=== PATIENT | female | born 1990 | race Caucasian/White ===

== ENCOUNTER 2019-12-13 12:27 | Emergency (ER) | payer SELFPAY ==
[2019-12-13 12:38] VITALS: BP 142/106; PULSE 76; RESP 18; TEMP 36.9; O2SAT 100; BMI 26.4
--- NOTE | 2019-12-13 12:45 | ED_ITS ---
HPI - Abdominal Pain General: Chief Complaint: Abdominal Pain Stated Complaint: abdominal pain, diarrhea Time Seen by Provider: 12/13/19 12:45 History of Present Illness: HPI narrative: Pt states she has had abd pain for 2 weeks and it is getting worse, starts in low abd and travels up her ribs, had diarrhea but none for over 24 hours, no fever, no change in appetite, no urinary symptoms, describes it as sharp and constant. MD elicited complaint: abdominal pain Onset (ago): week(s) (2) Pain Consistency: constant Location: RLQ and LLQ Severity: moderate Quality: stabbing Radiation: LUQ, RUQ and bilateral flank Migration to: bilateral flank Exacerbating factors: nothing Relieving factors: nothing Associated Symptoms: Reports diarrhea; Denies anorexia, chills, constipation, GI cramping, fever(s), nausea and vomiting Related Data: Date of Last Menstrual Period: 11/18/19 Review of Systems General: Reports: 10 or more systems reviewed and unremarkable except in HPI and below Const: Denies: fever or chills ENMT: Denies: throat pain Card: Denies: chest pain or swelling of feet/ankles Resp: Denies: shortness of breath or productive cough GI: Reports: abdominal pain and diarrhea; Denies: nausea, vomiting, constipation or cramping : Denies: difficulty urinating Musc: Denies: back pain or extremity swelling Skin/Breast: Denies: rash Neuro: Denies: headache, numbness in extremities or weakness in extremities PFSH ED PFSH: Social History Smoking and tobacco status: never smoked Female Reproductive History: Date of last menstrual period: 11/18/19 Physical Exam Const: COMMON NORMALS: no apparent distress and oriented x3 GENERAL APPEARANCE: cooperative; not in distress HENMT: COMMON NORMALS: normocephalic HEAD & SCALP: normal to inspection and normocephalic MOUTH: oral and palatal mucosa normal and lip normal THROAT: posterior oropharynx normal and tonsils normal Neck/C-Spine: COMMON NORMALS: full ROM, no lymphadenopathy, supple and no meningeal signs GENERAL: Yes normal visual inspection and Yes trachea midline Chest: COMMONS NORMALS: inspection of chest normal Resp: COMMON NORMALS: normal respiratory effort and clear to auscultation bilaterally EFFORT & INSPECTION: Yes able to speak in complete sentences and No respiratory distress AUSCULTATION: clear to auscultation bilaterally, no rales, no rhonchi and no wheezes Cardio: COMMON NORMALS: regular rate, regular rhythm, S1 normal heart sound, S2 normal heart sound and no murmurs RATE: regular rate RHYTHM: regular rhythm HEART SOUNDS: S1 normal and S2 normal PERIPHERAL PULSES: radial pulses present and dorsalis pedis pulses present GI: COMMON NORMALS: soft to palpation; negative for non-tender INSPECTION: Yes normal to inspection AUSCULTATION: Yes normoactive bowel sounds PALPATION: Yes soft and Yes tender Details: LLQ and RLQ RECTAL EXAM: deferred : COMMON NORMALS: Yes no CVA tenderness BLADDER/KIDNEY EXAM: Yes no CVA tenderness Back/Pelvis: COMMON NORMALS: no CVA tenderness Extremity: COMMON NORMALS: normal to inspection, full ROM, normal capillary refill, no calf tenderness and no pedal edema Neuro: COMMON NORMALS: oriented x3, CN's II-XII intact bilaterally, moves all extremities and no focal motor deficits MENINGEAL SIGNS: Yes no meningeal signs Skin: COMMON NORMALS: no rashes or lesions noted GENERAL SKIN EXAM: no rashes or lesions noted Course Vital Signs: Vital signs: Vital Signs Temperature 98.4 F 12/13/19 12:38 Pulse Rate 67 12/13/19 16:30 Respiratory Rate 16 12/13/19 16:30 Blood Pressure 102/61 12/13/19 16:30 Pulse Oximetry 98 12/13/19 16:30 MDM - Abdominal Pain MDM Narrative: Medical decision making narrative: Pt has acute alisson on ct so I will order an us. Us shows cholelithiasis with mildly thick gb walll. Normal lfts, no evidence of biliary obstruction. Dr Elena states he will see the pt in his office and hopefully he will take her to surgery next week, ..I will send her home with pain meds and nausea meds and low fat diet. She will return if worse, any fever, unable to hold anything down. We will try po challenge now Lab Data: Labs: Lab Results 12/13/19 12/13/19 12/13/19 Range/Units 12:45 13:30 13:30 WBC 6.7 (4.0-10.0) 10^3/ uL RBC 4.61 (4.1-5.3) 10^6/u L Hgb 13.3 (11.5-15.3) g/dL Hct 40.9 (37.0-47.0) % MCV 88.7 (81-99) fL MCH 28.9 (28.0-34.0) pg MCHC 32.5 (30.0-36.0) g/dL RDW 13.2 (12.1-15.1) % Plt Count 202 (130-400) 10^3/c mm MPV 11.9 H (7.4-10.4) fL Neut % (Auto) 63.3 % Lymph % (Auto) 28.1 % Har[place] % (Auto) 6.7 % Eos % (Auto) 1.2 % Baso % (Auto) 0.6 % Neut # (Auto) 4.2 (1.8-7.7) 10^3/u L Lymph # (Auto) 1.9 (0.8-4.8) 10^3/u L [place] # (Auto) 0.5 (0.2-0.9) 10^3/u L Eos # (Auto) 0.1 (0.0-0.8) 10^3/u L Baso # (Auto) 0.0 (0.0-0.1) 10^3/u L Nucleated RBC % (a uto) 0 % Nucleated RBCs # 0.0 /100WBC Sodium 139 (136-145) mmol/L Potassium 3.9 (3.5-5.1) mmol/L Chloride 103 (98-107) mmol/L Carbon Dioxide 25 (22-29) mmol/L Anion Gap 14.9 (5-19) BUN 11 (6-20) mg/dL Creatinine 0.8 (0.5-0.9) mg/dL GFR Calculation 84.8 L (90-130) mL/min Glucose 94 (65-115) mg/dL Calculated Osmolal ity 284 L (285-295) mOsm/k g Calcium 9.6 (8.5-10.5) mg/dL Total Bilirubin 0.2 (0.15-1.2) mg/dL AST 19 (0-32) U/L ALT 20 (0-33) U/L Alkaline Phosphata se 77 (35-105) IU/L Total Protein 7.3 (6.6-8.7) g/dL Albumin 4.4 (3.5-5.2) g/dL Globulin 2.9 (1.3-4.6) g/dL Lipase 22 (13-60) U/L HCG, Qual (Negative) Urine Color Straw (Yellow) Urine Appearance Clear (CLEAR) Urine pH 7 (5-7) Ur Specific Gravit y 1.000 L (1.005-1.030) Urine Protein Neg (Negative) Urine Glucose (UA) Norm (Normal) Urine Ketones Negative (Negative) Urine Blood Neg (Negative) Urine Nitrate Negative (Negative) Urine Bilirubin Neg (NEGATIVE) Urine Urobilinogen Norm (Negative) mg/dL Ur Leukocyte Nuris ase Negative (Negative) 12/13/19 Range/Units 13:30 WBC (4.0-10.0) 10^3/ uL RBC (4.1-5.3) 10^6/u L Hgb (11.5-15.3) g/dL Hct (37.0-47.0) % MCV (81-99) fL MCH (28.0-34.0) pg MCHC (30.0-36.0) g/dL RDW (12.1-15.1) % Plt Count (130-400) 10^3/c mm MPV (7.4-10.4) fL Neut % (Auto) % Lymph % (Auto) % Harford % (Auto) % Eos % (Auto) % Baso % (Auto) % Neut # (Auto) (1.8-7.7) 10^3/u L Lymph # (Auto) (0.8-4.8) 10^3/u L Har[place] # (Auto) (0.2-0.9) 10^3/u L Eos # (Auto) (0.0-0.8) 10^3/u L Baso # (Auto) (0.0-0.1) 10^3/u L Nucleated RBC % (a uto) % Nucleated RBCs # /100WBC Sodium (136-145) mmol/L Potassium (3.5-5.1) mmol/L Chloride (98-107) mmol/L Carbon Dioxide (22-29) mmol/L Anion Gap (5-19) BUN (6-20) mg/dL Creatinine (0.5-0.9) mg/dL GFR Calculation (90-130) mL/min Glucose (65-115) mg/dL Calculated Osmolal ity (285-295) mOsm/k g Calcium (8.5-10.5) mg/dL Total Bilirubin (0.15-1.2) mg/dL AST (0-32) U/L ALT (0-33) U/L Alkaline Phosphata se (35-105) IU/L Total Protein (6.6-8.7) g/dL Albumin (3.5-5.2) g/dL Globulin (1.3-4.6) g/dL Lipase (13-60) U/L HCG, Qual Negative (Negative) Urine Color (Yellow) Urine Appearance (CLEAR) Urine pH (5-7) Ur Specific Gravit y (1.005-1.030) Urine Protein (Negative) Urine Glucose (UA) (Normal) Urine Ketones (Negative) Urine Blood (Negative) Urine Nitrate (Negative) Urine Bilirubin (NEGATIVE) Urine Urobilinogen (Negative) mg/dL Ur Leukocyte Nuris ase (Negative) Imaging Data ^: CT Abd/Pel: Radiologist's impression: [place] [address] CT Scan Report Signed Patient: Fabrice Murphy #: [id number] : 1990Acct#:[id number] Age/Sex: Date: [birth year] [facility] Attending Dr: Ordering Provider/Ordering MD: Lexis Zayas DO Date of Service: 12/13/19 Procedure(s): CT abdomen pelvis w con* [id number] Accession Number(s): [id number] Report Number: [id number] WS: [id number] CT ABDOMEN AND PELVIS WITH CONTRAST HISTORY: Abdominal pain with diarrhea. TECHNIQUE: Imaging performed of the abdomen and pelvis with IV contrast. Single phase imaging of the abdomen. Coronal and sagittal reformats are submitted. All CT scans at [facility] use at least one of these dose optimization techniques: automated exposure control; mA and/or kV adjustment per patient size (includes targeted exams where dose is matched to clinical indication); or iterative reconstruction. IV CONTRAST: Omnipaque 300; 95 mL IV. Oral contrast: No DLP: 645.74 mGy.cm COMPARISON: None available. Lower thorax: Lung bases are clear. Heart is normal size. No hiatal hernia. Liver/biliary system: Normal size with no intrahepatic dilatation. Gallbladder: Abnormal gallbladder. Gallbladder is slightly contracted with wall thickening and enhancement and pericholecystic edema. There is a stone in the fundus of the gallbladder. Pancreas: Normal. Spleen: Normal. Adrenal glands: Normal. Right kidney: Normal. Left kidney: Nonobstructing 6 mm calcification upper pole. Aorta: Normal. Lymphadenopathy: Small celiac axis lymph nodes measuring up to 6 mm. RIGHT lower quadrant lymph node measures 8 mm. Smaller RIGHT lower quadrant mesenteric lymph nodes are identified. There are very small retroperitoneal lymph nodes. Free fluid: None. GI tract: Appendix is not definitely identified. No GI tract obstruction or inflammatory process. Abdominal wall: Unremarkable abdominal wall. No hernia. Pelvis: Hemorrhagic collapsing corpus luteum cyst RIGHT ovary enhancing crenulated wall. Maximum diameter 1.7 cm. No free fluid in the pelvis. Bones: Unremarkable. CT/CT abdomen pelvis w con* [id number] IMPRESSION: 1. Findings consistent with acute cholecystitis without bile duct dilatation. Gallbladder is slightly contracted. Confirm with RIGHT upper quadrant ultrasound. 2. The appendix is not identified. 3. There are a few scattered mesenteric lymph nodes. Probably on the basis of mesenteric adenitis. Dictated By:Kyara Jean DO Signed By:Kyara Jean DOSigned Date/Time:12/13/19 1513 US: Radiologist's impression: Ultrasound Report Signed Patient: Fabrice Murphy #: [id number] : 1990Acct#:[id number] Age/Sex: Date: [birth year] Loc: ERRoom/Bed: Attending Dr: Ordering Provider/Ordering MD: Lexis Zayas DO Date of Service: 12/13/19 Procedure(s): US gall bladder 10688 Accession Number(s): [id number] Report Number: [id number] WS: [id number] RIGHT UPPER QUADRANT ULTRASOUND HISTORY: Abdominal pain, abnormal CT. COMPARISON: CT abdomen 12/13/2019. Liver: 10.3 cm in length. Normal size and echogenicity with no intrahepatic dilatation. No mass. Gallbladder: Mildly contracted gallbladder with shadowing from stones. Large amount of stones within the lumen. Diffuse gallbladder wall thickening is mild measuring up to 3.5 mm. CBD: 0.3 cm Pancreas: Normal size and echogenicity. Right kidney: 9.7 cm in length. Normal echogenicity with no mass or hydronephrosis. Aorta and IVC: Unremarkable. No ascites. US/US gall bladder [id number] IMPRESSION: Cholelithiasis with mild wall thickening. No bile duct dilatation or pericholecystic fluid. Dictated By:Kyara Jean DO Signed By:Kyara Jean DOSigned Date/Time:12/13/19 1600 DD/ 1559 Discharge Plan Discharge Patient Disposition: Home, Self-Care Clinical Impression: Cholelithiases Qualifiers: Cholelithiasis location: gallbladder Cholecystitis presence: without cholecystitis Biliary obstruction: without biliary obstruction Qualified Code(s): K80.20 - Calculus of gallbladder without cholecystitis without obstruction Condition: Stable Prescriptions: New hydrocodone-acetaminophen 5-325 mg tablet 1 tab PO Q4H PRN (Reason: pain) Qty: 20 RF: 0 Zofran 4 mg tablet 4 mg PO Q6H PRN (Reason: nausea and vomiting) Qty: 30 RF: 0 No Action fluoxetine 10 mg Capsule 20 mg PO DAILY RF: 0 ibuprofen 200 mg Tablet 400 mg PO PRN RF: 0 Discharge Orders: Discharge Order (Routine); Ordered 12/13/19 Ordered By: Lexis Zayas Referrals: Antonieta Riddle MD [Primary Care Provider] - 1-3 days Trevor Elena MD [Physician] - 1-3 days (call monday morning for appointment for next week) Discharge Diet: Low Salt Discharge Activity: Resume usual activity Patient Instructions: Cholelithiasis Activity Restrictions/Additional Instructions: f/u with pcp 1-2 days, return if worse, any problem, any change, low fat diet, drink plenty of fluids, f/u with Dr Elena next week, call mmonday Discharge Date/Time: 12/13/19 17:00 Coding Level of Care Code ED Ornament Setter for Chg Fwd Exam Comprehensive
--- NOTE | 2019-12-13 13:05 | CT_ITS ---
WS: [id number] CT ABDOMEN AND PELVIS WITH CONTRAST HISTORY: Abdominal pain with diarrhea. TECHNIQUE: Imaging performed of the abdomen and pelvis with IV contrast. Single phase imaging of the abdomen. Coronal and sagittal reformats are submitted. All CT scans at [facility] use at least one of these dose optimization techniques: automated exposure control; mA and/or kV adjustment per patient size (includes targeted exams where dose is matched to clinical indication); or iterativ e reconstruction. IV CONTRAST: Omnipaque 300; 95 mL IV. Oral contrast: No DLP: 645.74 mGy.cm COMPARISON: None available. Lower thorax: Lung bases are clear. Heart is normal size. No hiatal hernia. Liver/biliary system: Normal size with no intrahepatic dilatation. Gallbladder: Abnormal gallbladder. Gallbladder is slightly contracted with wall thickening and enhanc ement and pericholecystic edema. There is a stone in the fundus of the gallbladder. Pancreas: Normal. Spleen: Normal. Adrenal glands: Normal. Right kidney: Normal. Left kidney: Nonobstructing 6 mm calcification upper pole. Aorta: Normal. Lymphadenopathy: Small celiac axis lymph nodes measuring up to 6 mm. RIGHT lower quadrant lymph node measures 8 mm. Smaller RIGHT lower quadrant mesenteric lymph nodes are identified. There are very sma ll retroperitoneal lymph nodes. Free fluid: None. GI tract: Appendix is not definitely identified. No GI tract obstruction or inflammatory process. Abdominal wall: Unremarkable abdominal wall. No hernia. Pelvis: Hemorrhagic collapsing corpus luteum cyst RIGHT ovary enhancing crenulated wall. Maximum diam eter 1.7 cm. No free fluid in the pelvis. Bones: Unremarkable. CT/CT abdomen pelvis w con* [id number] IMPRESSION: 1. Findings consistent with acute cholecystitis without bile duct dilatation. Gallbladder is slightly contracted. Confirm with RIGHT upper quadrant ultrasoun d. 2. The appendix is not identified. 3. There are a few scattered mesenteric lymph nodes. Probably on the basis of mesenteric adenitis.
[2019-12-13 13:11] VITALS: BP 125/63; PULSE 78; RESP 16; O2SAT 100
[2019-12-13] MEDS: morphine 4 mg/mL SDV 1 mL IVP (13:35)
[2019-12-13] MEDS: ondansetron 2 mg/ML SDV 2 mL 4 MG IVP (13:36)
[2019-12-13] MEDS: sodium chloride 0.9% 1,000 ML 999 ML IV (13:36)
[2019-12-13 13:56] LABS: Add Urine Microscopic? NO
[2019-12-13 14:16] LABS: Bilirubin Urine Neg (NEGATIVE); Blood Urine Neg (Negative); Glucose Urine UA Norm (Normal); Ketones Urine Negative (Negative); Leukocyte Esterase Urine Negative (Negative); Nitrate Urine Negative (Negative); Protein Urine Neg (Negative); Urine Appearance Clear (CLEAR); Urine Color Straw (Yellow); Urobilinogen Urine Norm (Negative); pH Urine 7 (5-7)
[2019-12-13 14:30] VITALS: BP 113/64; PULSE 78; RESP 16; O2SAT 99
[2019-12-13 14:34] LABS: Basophils % 0.6 %; Eosinophils # 0.1 10^3/uL (0.0-0.8); Eosinophils % 1.2 %; Hematocrit 40.9 % (37.0-47.0); Hemoglobin 13.3 g/dL (11.5-15.3); Lymphocytes # 1.9 10^3/uL (0.8-4.8); Lymphocytes % 28.1 %; Mean Corpuscular HGB Conc 32.5 g/dL (30.0-36.0); Mean Corpuscular Hemoglobin 28.9 pg (28.0-34.0); Mean Corpuscular Volume 88.7 fL (81-99); Mean Platelet Volume 11.9 fL (7.4-10.4); Monocytes # 0.5 10^3/uL (0.2-0.9); Monocytes % 6.7 %; Neutrophils # 4.2 10^3/uL (1.8-7.7); Neutrophils % 63.3 %; Nucleated Red Blood Cells % 0 %; Platelet Count 202 10^3/cmm (130-400); Red Blood Count 4.61 10^6/uL (4.1-5.3); Red Cell Distribution Width 13.2 % (12.1-15.1); White Blood Count 6.7 10^3/uL (4.0-10.0)
[2019-12-13 14:49] LABS: Alanine Aminotransferase 20 U/L (0-33); Albumin Level 4.4 g/dL (3.5-5.2); Alkaline Phosphatase 77 IU/L (35-105); Anion Gap 14.9 (5-19); Aspartate Amino Transferase 19 U/L (0-32); Blood Urea Nitrogen 11 mg/dL (6-20); Calcium 9.6 mg/dL (8.5-10.5); Carbon Dioxide 25 mmol/L (22-29); Chloride 103 mmol/L (98-107); Globulin 2.9 g/dL (1.3-4.6); Glomerular Filtration Rate 84.8 mL/min (90-130); Glucose 94 mg/dL (65-115); Lipase 22 U/L (13-60); Osmolality Calculated 284 mOsm/kg (285-295); Potassium 3.9 mmol/L (3.5-5.1); Sodium 139 mmol/L (136-145); Total Bilirubin 0.2 mg/dL (0.15-1.2); Total Protein 7.3 g/dL (6.6-8.7)
[2019-12-13 14:52] LABS: HCG, Serum Qual Negative (Negative)
[2019-12-13] MEDS: iohexol 300 mg/mL 100 mL Btl IV (14:59)
[2019-12-13 15:00] VITALS: BP 107/57; PULSE 78; RESP 16; O2SAT 100
--- NOTE | 2019-12-13 15:28 | US_ITS ---
WS: [id number] RIGHT UPPER QUADRANT ULTRASOUND HISTORY: Abdominal pain, abnormal CT. COMPARISON: CT abdomen 12/13/2019. Liver: 10.3 cm in length. Normal size and echogenicity with no intrahepatic dilatation. No mass. Gallbladder: Mildly contracted gallbladder with shadowing from stones. Large amount of stones within the lumen. Diffuse gallbladder wall thickening is mild measuring up to 3.5 mm. CBD: 0.3 cm Pancreas: Normal size and echogenicity. Right kidney: 9.7 cm in length. Normal echogenicity with no mass or hydronephrosis. Aorta and IVC: Unremarkable. No ascites. US/US gall bladder [id number] IMPRESSION: Cholelithiasis with mild wall thickening. No bile duct dilatation or pericholec ystic fluid.
[2019-12-13 16:00] VITALS: BP 111/74; PULSE 75; RESP 16; O2SAT 100
[2019-12-13 16:30] VITALS: BP 102/61; PULSE 67; RESP 16; O2SAT 98
--- NOTE | 2019-12-16 10:28 | DCPLANNER ---
data science and iot manager had message to schedule a follow up appointment for patient with Dr. Elena. data science and iot manager called [facility], spoke with [facility], gave clinic patients information. data science and iot manager was told that patients information would be printed and reviewed. A follow up appointment was scheduled for patient for Friday, December 20, 2019 at 1:[address] Elena. Clinic will call patient with appointment information.
--- NOTE | 2019-12-24 14:03 | DCPLANNER ---
Patient did attend appointment scheduled for 12.20.19 with [facility].
== END 2019-12-13 17:00 | disposition home or self-care (01) ==
PROVIDERS: Emergency Medicine; Emergency Provider Emergency Medicine; Family Provider Family Medicine; PCP Family Medicine
DX: K80.20 Calculus of gallbladder without cholecystitis without obstruction (principal)
CPT/HCPCS: 12345; 74177; 76705; 80053; 81003; 83690; 84703; 85025; 96360; 96361; 96374; 96375; 99283; 99284; J2270; J2405; J7030; Q9967

== ENCOUNTER 2019-12-25 06:40 | Day surgery (SDC) | payer SELFPAY ==
[2019-12-24 12:19] VITALS: BMI 26.4
[2019-12-25] VITALS (7 sets, daily range): BP systolic 99–120; BP diastolic 59–83; PULSE 65–97; RESP 16–20; TEMP 36.4–36.6; O2SAT 96–100
[2019-12-25] MEDS: sodium chloride 0.9% 1,000 ML 30 ML IV (07:10)
--- NOTE | 2019-12-25 07:10 | ANES.PREANE2 ---
Pre-Anesthetic Assessment Pre-Anesthetic Assessment: Height/Weight: Height 1.55 m Weight 63.503 kg Temp Pulse Resp BP Pulse Ox 97.8 F 68 18 120/83 100 12/25/19 06:57 12/25/19 06:57 12/25/19 06:57 12/25/19 06:57 12/25/19 06:57 Preop Diagnosis: Cholelithiasis Proposed Procedure: Operation Date: 12/25/19 08:10 Proposed Procedures p Laparoscopic Cholecystectomy 27205 K80.20(Not Applicable) - Trevor Elena MD Last intake: Intake Last Liquid Date 12/24/19 Last Liquid Time 21:00 Last Solid Date 12/24/19 Last Solid Time 17:00 Social: Social History: No alcohol and No tobacco Exam: Pre-Anes Outpt Exam: alert, oriented x 3, clear to auscultation bilaterally and regular rate & rhythm Airway: Submandibular: WNL Cervical ROM: WNL MP: 2 Dentition: Full (dentation good) History/ROS: No significant history except as noted Pulmonary: Pulmonary: None reported CV/HEM: CV/HEM: None reported : : None reported Hepatic: Hepatic: None reported GI: GI: None reported Metabolic: Metabolic: None reported Musc/skel: Musc/skel: None reported Neuropsych: Neuropsych: Depression Anesthetic Plan: ASA status: 2 Anesthesia: Anesthesia Evaluation and General Risk of > 500 ml blood loss (7ml/kg in children): No Meds/Allergies Current Medications: Current Medications Generic Name Dose Route Start Last Admin Trade Name Freq PRN Reason Stop Dose Admin Sodium Chloride 1,000 mls @ 30 ml s/hr 12/25/19 06:45 12/25/19 07:10 Sodium Chloride 0.9% IV 12/26/19 06:44 30 mls/hr .Q24H TIANA Administration PFSH Anesthesia PFSH: Medical History Depression Surgical History H/O tubal ligation History of delivery Hx of tonsillectomy Family History Denies family history of Anesthesia complication Bleeding disorder Social History Smoking and tobacco status: never smoked Female Reproductive History: Date of last menstrual period: 11/18/19 Data Anesthesia Cardiac Studies: No Data to Display
[2019-12-25 07:14] LABS: OR HCG Qualitative Urine Negative (Negative)
--- NOTE | 2019-12-25 07:48 | W.PM.OPSUD ---
Surgery/Procedure H&P Update DATE OF PROCEDURE: December 25, 2019 DATE H&P PERFORMED: 12/20/19 H&P UPDATE INFORMATION: I have reviewed H&P completed within last 30 days, I have examined patient prior to procedure and No changes to prior documentation PREOP DIAGNOSIS: Cholelithiasis PLANNED PROCEDURE: Operation Date: 12/25/19 08:10 Proposed Procedures p Laparoscopic Cholecystectomy 99588 K80.20(Not Applicable) - Trevor Elena MD
[2019-12-25] MEDS: levofloxacin-dextrose 5 % 500 MG/100 ML PREMIX 100 MG IV (07:57)
--- NOTE | 2019-12-25 09:09 | PM.OP ---
Operative Report Date of procedure: December 25, 2019 Pre-op Diagnosis: Cholelithiasis Post-op diagnosis: same Procedure Done: Laparoscopic cholecystectomy Specimens removed/disposition: Gallbladder Surgeon: Trevor Elena Anesthesia: General Estimated blood loss (mL): 5 Condition: stable Disposition: PACU Procedure: The patient was taken to the operating room and was intubated under general anesthesia. After the antibiotic had been administered, the abdomen was prepped and draped in a sterile manner. Using a #15 blade, a 1 centimeter infraumbilical curvilinear incision was made and using an open Carolyn technique the peritoneal cavity was entered. A 10 millimeter port was placed and 15 millimeters of pneumoperitoneum was created. A 10 millimeter, 30 degrees scope was then introduced. Three 5 millimeter ports were placed in the epigastric, midclavicular and the anterior axillary line two fingerbreadths below the costal margin on the right side under the direct visualization. Ratcheted forceps were introduced into the lateral most port and was used to retract the fundus of the gallbladder cephalad and using forceps the infundibulum of the gallbladder was retracted laterally. Using L-hook cautery the peritoneum overlying the Calot's triangle was opened medially and laterally until the cystic duct and the cystic artery were skeletonized. Dissection was carried along the body of the gallbladder and after ensuring critical view of safety, 4 clips applied on the cystic duct and 3 clips applied on the cystic artery and cut leaving, 3 clips on the remaining portion of the duct and 2 clips on the remaining portion of the artery. The rest of the gallbladder was dissected off the liver using L-hook cautery. There was no bleeding or bile leaking noted from the gallbladder fossa and the clips appeared to be in place. An EndoCatch bag was introduced to remove the gallbladder. All the ports were removed under direct visualization and there was no bleeding noted from the port sites. The fascia of the umbilicus was closed using [id number] Vicryl sutures and the subcutaneous tissue was approximated using 3-0 Vicryl sutures. The skin at all four ports were closed using 4-0 Monocryl and Dermabond. A total of 10 millimeters of 0.5% Marcaine was infiltrated around the port sites. The patient was stable throughout the procedure.
[2019-12-25] MEDS: HYDROcodone-acetaminophen 5-325 mg Tablet 1 TAB PO (10:01)
== END 2019-12-25 10:30 | disposition home or self-care (01) ==
PROVIDERS: Anesthesiology; PCP Nurse Practitioner Family; Visit Provider Surgery
PROC: 0FT44ZZ Resection of Gallbladder, Percutaneous Endoscopic Approach (ICD-10-PCS; CPT 47562; principal; 2019-12-25 08:10)
DX: K80.10 Calculus of gallbladder with chronic cholecystitis without obstruction (principal); F32.9 Major depressive disorder, single episode, unspecified
CPT/HCPCS: 47562; 12345; 81025; 84703; 88304; J1956; J2001; J2405; J2704; J2710; J3010; J3490; J7030

== ENCOUNTER 2021-12-23 16:21 | Outpatient (CLI) | payer MEDICAID, SELFPAY ==
--- NOTE | 2021-12-23 16:39 | XR_ITS ---
WS: [id number] XR sinus min 3V* [id number] REASON FOR EXAM: DIZZINESS FINDINGS: The maxillary and left ethmoid sinuses are clear and well-aerated. There is slight haziness of the ri ght ethmoid sinus which may indicate mild mucosal thickening. The frontal sinuses are small small but well aerated. Sphenoid sinus is normal. XR/XR sinus min 3V* [id number] IMPRESSION: Minimal change right ethmoid sinus as above.
== END 2021-12-23 16:22 | disposition home or self-care (01) ==
LOC: RAD 16:29
PROVIDERS: PCP Nurse Practitioner Family; Visit Provider Nurse Practitioner Family
DX: R42 Dizziness and giddiness (principal)
CPT/HCPCS: 70220

== ENCOUNTER → 2022-07-24 10:58 | Outpatient (BNVA) | payer MEDICAID, SELFPAY | PROVIDERS: PCP Nurse Practitioner Family; Visit Provider Registered Nurse Neonatal Intensive Care | DX: R05.9 Cough, unspecified (principal); B34.9 Viral infection, unspecified | CPT/HCPCS: 87400 ==

== ENCOUNTER 2022-07-29 11:56 | Emergency (ER) | payer MEDICAID, SELFPAY ==
[2022-07-29 12:03] VITALS: BP 142/87; PULSE 77; RESP 14; TEMP 36.8; O2SAT 100; BMI 26.4
--- NOTE | 2022-07-29 12:09 | ED_ITS ---
HPI - Headache General: Chief Complaint: Headache Stated Complaint: head pain Time Seen by Provider: 07/29/22 12:08 Source: patient Mode of arrival: ambulatory Limitations: no limitations History of Present Illness: 32-year-old female presents the ER today for right-sided neck pain that started suddenly this warning. Patient reports she got a sharp shooting pain in the right side of her neck that went from the back of her head down into her neck/back. Patient reports she also feels like she has some tenderness with range of motion of the neck. She reports is almost like a stiff neck. Patient denies any headache or frontal head pain. Patient has a history of migraines however this is completely different than a migraine for her. She has not take anything for symptoms at this time. She reports some blurry vision/dizziness from the neck pain. Denies any recent illness other than a sinus infection which she took antibiotics for. Denies any fever or chills. Patient denies any known injury. Review of Systems General: Reports: 10 or more systems reviewed and unremarkable except in HPI and below PFSH ED PFSH: Medical History (Updated 07/29/22 @ 13:23 by Shelbie Bowie PA-C) Depression Surgical History H/O tubal ligation History of delivery Hx of tonsillectomy Status post laparoscopic cholecystectomy (12/25/19) Family History Denies family history of Anesthesia complication Bleeding disorder Social History Smoking and tobacco status: never smoked Female Reproductive History: Date of last menstrual period: 11/18/19 Physical Exam Const: COMMON NORMALS: no acute distress, average body habitus, patient oriented x3, no limitations, healthy appearing, alert and well nourished OTHER: tearful HENMT: COMMON NORMALS: normocephalic, atraumatic, external ears normal, Normal external nose present, Normal nasal mucous membranes and turbinates present, moist oral mucous membranes and oropharynx normal HEAD & SCALP: normocephalic and atraumatic NOSE: Normal external nose present and Normal nasal mucous membranes and turbinates present EXTERNAL EAR: Yes external ears normal Eye: COMMON NORMALS: conjunctivae normal CONJUNCTIVA: Yes conjunctivae normal Neck/C-Spine: OTHER: Patient has tenderness to palpation of the right sternocleidomastoid. No spinous process tenderness along the cervical spine. Patient has normal range of motion of the neck however does report some stiffness with rotation. Resp: COMMON NORMALS: normal respiratory effort and No retractions Cardio: COMMON NORMALS: regular rate and regular rhythm RATE: regular rate RHYTHM: regular rhythm Back/Pelvis: COMMON NORMALS: thoraco-lumbar ROM normal Extremity: COMMON NORMALS: normal to inspection and full ROM Neuro: COMMON NORMALS: patient oriented x3 SENSORIUM/ORIENTATION: Yes alert Psych: COMMON NORMALS: mental status grossly normal, Normal thought process present and cooperative THOUGHT PROCESS: Normal thought process present OTHER: tearful Skin: COMMON NORMALS: no rashes or lesions noted and no wounds GENERAL SKIN EXAM: no rashes or lesions noted Course ED course: Patient presents to the ER with sudden onset neck pain that started a couple of hours ago. Patient reports she also has some neck stiffness now. Has a history of migraines however this is much different. We will get a C- spine x-ray however no injury has been reported. We will also do orphenadrine and Toradol for pain and see if patient gets any relief. Vital Signs: Vital signs: Vital Signs Temperature 98.3 F 07/29/22 12:03 Pulse Rate 77 07/29/22 12:03 Respiratory Rate 14 07/29/22 12:03 Blood Pressure 142/87 07/29/22 12:03 Pulse Oximetry 100 07/29/22 12:03 Oxygen Delivery Me thod 07/29/22 12:03 MDM - Headache Medical Decision Making X-ray of the C-spine is normal. Patient reports some improvement in the sharp pain after the orphenadrine and Toradol were given. Discussed with patient that I think this is likely a mild cervical strain whether that be due to sleeping wrong versus some other cause. We will send patient home with Robaxin and naproxen. Recommended warm, moist heat and topical muscle rub. If pain and symptoms do not resolve in 4 to 5 days follow-up with PCP. For new or worsening symptoms return to ER. Patient verbalized understanding and was in agreement with the treatment plan. Lab Data Radiology Impressions Cervical Spine X-Ray 07/29/22 12:20 IMPRESSION: Normal cervical spine Critical Care Time Critical Care Time: Critical Care Time: No Discharge Plan Discharge Patient Disposition: Home Clinical Impression: Acute neck pain Condition: Stable Prescriptions: New methocarbamol 750 mg tablet 750 mg PO Q8H Qty: 21 0RF naproxen 500 mg tablet,delayed release (DR/EC) 500 mg PO BID PRN (Reason: pain) Qty: 20 0RF No Action ibuprofen 200 mg Tablet 400 mg PO PRN Zyrtec 10 mg tablet 10 mg PO DAILY PRN (Reason: Allergy Symptoms) prednisone 20 mg tablet 20 mg PO BID sulfamethoxazole-trimethoprim 800-160 mg tablet 1 tab PO BID fluticasone propionate 50 mcg/actuation spray,suspension 1 spray INTRANASAL BID magnesium 200 mg Tablet 200 mg PO DAILY Nurtec ODT 75 mg tablet,disintegrating 75 mg PO DAILY Discharge Orders: Discharge ED (Routine); Ordered 07/29/22 Ordered By: Shelbie Bowie Referrals: Elmira Mckay, EDUCATION DIRECTOR [Primary Care Provider] - Discharge Diet: Usual diet Discharge Activity: Increase activity as tolerated Patient Instructions: Opioid Safety, Pain Management Activity Restrictions/Additional Instructions: Take Robaxin and naproxen as prescribed. Warm, moist heat recommended. Topical muscle rubs such as Bengay or icy hot also recommended but do not use with heat. For new or worsening symptoms return to the ER. Otherwise follow-up with PCP in 4 to 5 days if no improvement. Stand Alone Forms: Work/School Release Coding Level of Care Code ED [facility] Fwd Exam Comprehensive
--- NOTE | 2022-07-29 12:20 | XRR_ITS ---
PROCEDURE INFORMATION: Exam: XR Cervical Spine Exam date and time: 07/29/2022 12:43 PM Age: 32 years old Clinical indication: Patient HX: Neck pain; Per PT no recent trauma pain began this am with difficulty rom TECHNIQUE: Imaging protocol: Radiologic exam of the cervical spine. Views: 2 or 3 views. COMPARISON: CR XR sinus min 3V* [id number] 12/23/2021 4:39 PM FINDINGS: Bones/joints: Normal alignment. No fracture or subluxation. Disc heights are maintained. Soft tissues: No prevertebral soft tissue swelling. XR/XR cervical spine 3V* [id number] IMPRESSION: Normal cervical spine
[2022-07-29] MEDS: ketorolac 60 mg/2 mL INJ IM (13:01)
[2022-07-29] MEDS: orphenadrine 30 mg/mL Inj 2 mL 60 MG IM (13:01)
== END 2022-07-29 13:29 | disposition home or self-care (01) ==
PROVIDERS: Emergency Provider Physician Assistant; PCP Nurse Practitioner Family
DX: M54.2 Cervicalgia (principal)
CPT/HCPCS: 72040; 96372; 99284; J1885; J2360

== ENCOUNTER 2022-09-28 08:02 | Outpatient (CLI) | payer MEDICAID, SELFPAY ==
--- NOTE | 2022-09-28 08:11 | MR_ITS ---
WS: [id number] MRI HEAD WITH CONTRAST TECHNIQUE: Sagittal T1, T2 axial, T2 axial FLAIR, axial susceptibility weighted imaging, axial diffus ion weighted images, and coronal T2 images were obtained. Pre and post-T1 axial and post T1 coronal i mages. ADC and FSPGR images. CLINICAL INFORMATION: MIGRAINE HEADACHES COMPARISON: CT head 2017 FINDINGS: No evidence of restricted diffusion to suggest acute ischemia. Ventricular system and basal cisterns are patent. Normal posterior fossa. Normal vascular flow voids at the skull base. No extra-axial flui d collections. No evidence of mass or mass effect. Paranasal sinuses are well aerated. Normal posteri or nasopharynx. Normal parapharyngeal fat. 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 Normal vascular flow voids at the skull base. No extra-axial fluid collections. No evidence of mass o r mass effect. Paranasal sinuses and mastoid air cells well aerated. Normal posterior nasopharynx. No rmal parapharyngeal fat. MR/MR head wo/w con [id number] IMPRESSION: 1. No evidence of restricted diffusion to suggest acute ischemia. 2. No suspicious intracranial T2 signal abnormalities. No significant parenchy mal volume loss. 3. 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 Venous angioma drains to the basilar vein on the post gadolinium imaging. 4. Normal optic chiasm and pituitary infundibulum. Normal cavernous sinuses an d Meckel's cave. 5. Normal dural venous sinauses. 6. Paranasal sinuses and mastoid air cells well aerated. 7. No other acute findings.
[2022-09-28] MEDS: gadobenate dimeglumine 20 mL vial IV (09:02)
== END 2022-09-28 08:03 | disposition home or self-care (01) ==
LOC: RAD 08:03
PROVIDERS: PCP Nurse Practitioner Family; Visit Provider Nurse Practitioner Family
DX: G43.909 Migraine, unspecified, not intractable, without status migrainosus (principal)
CPT/HCPCS: 70553; A9577

== ENCOUNTER → 2023-10-08 16:45 | Outpatient (BNVA) | payer MEDICAID, SELFPAY | PROVIDERS: PCP Nurse Practitioner Family; Visit Provider Emergency Medicine | DX: J06.9 Acute upper respiratory infection, unspecified (principal) | CPT/HCPCS: 87400 ==

== ENCOUNTER 2024-09-04 15:46 | Outpatient (CLI) | payer MEDICAID, SELFPAY ==
--- NOTE | 2024-09-04 16:05 | CT_ITS ---
WS: [id number] CT PARANASAL SINUSES HISTORY: CHRONIC RHINITIS, HEADACHE TECHNIQUE: Contiguous 2.5 mm axial images obtained through the sinuses. Images are reconstructed in s agittal and coronal planes. All CT scans at [facility] use at least one of these dose optimiz ation techniques: automated exposure control; mA and/or kV adjustment per patient size (includes targ eted exams where dose is matched to clinical indication); or iterative reconstruction. DLP: 309.99 mGy.cm COMPARISON: None available. Frontal sinuses: Normal. Sphenoid sinus: Normal. Ethmoid sinuses: Normal. Maxillary sinus: Normal. No air-fluid levels. Ostiomeatal unit: Widely patent ostiomeatal units. Minimal S-shaped curvature of the nasal septum with a tiny bony spur to the LEFT. Normal orbits and globes. No soft tissue abnormalities. CT/CT sinus wo con* [id number] IMPRESSION: Negative paranasal sinus CT.
== END 2024-09-04 15:47 | disposition home or self-care (01) ==
LOC: RAD 15:48
PROVIDERS: PCP Nurse Practitioner Family; Visit Provider Specialist
DX: J31.0 Chronic rhinitis (principal); R51.9 Headache, unspecified
CPT/HCPCS: 70486

== ENCOUNTER → 2024-09-21 10:12 | Outpatient (BNVA) | payer MEDICAID, SELFPAY | PROVIDERS: PCP Nurse Practitioner Family | DX: R50.9 Fever, unspecified (principal); J10.1 Influenza due to other identified influenza virus with other respiratory manifestations | CPT/HCPCS: 87400 ==